=== PATIENT | female | born 1935 | race Caucasian/White ===

== ENCOUNTER 2016-08-22 08:46 | Observation (INO) | payer MEDICAID ==
[2016-08-22 08:47] VITALS: BMI 30.1
[2016-08-22 09:00] VITALS: O2SAT 98
[2016-08-22] MEDS ORDERED: Iohexol 240 (50 ml) PO ONE (09:25)
--- NOTE | 2016-08-22 09:37 | ED PDOC ---
HPI: Abdomen Time Seen by Provider: 08/22/16 09:11 Chief Complaint (Nursing): Abdominal Pain Chief Complaint (Provider): Abdominal pain History Per: Patient History/Exam Limitations: no limitations Onset/Duration Of Symptoms: Days (x14) Additional Complaint(s): Palak Fontaine, 81 year old female presents to the ED on 08/22/16 for abdominal pain occurring for 2 weeks prior to arrival. The patient has been experiencing consistent, non-radiating pain in the area for the past 2 weeks. She denies nausea, vomiting, or fever. The patient has been urinating frequently throughout the night. She has a past medical history inclusive of hyperthyroidism, anxiety, and hypertension. The patient has been taking Omeprazole 40 mg for 1 month with no relief. She also takes Xanax, Paxil, Lipitor, Melatonin, and Vitamin D. 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 Past Medical History Reviewed: Historical Data, Nursing Documentation, Vital Signs Vital Signs: Last Vital Signs Temp 98 F 08/22/16 08:55 Pulse 88 08/22/16 08:55 Resp 20 08/22/16 08:55 BP 121/70 08/22/16 08:55 Pulse Ox 98 08/22/16 11:08 - Medical History PMH: Anxiety, HTN, Hyperthyroidism Denies: Chronic Kidney Disease - Surgical History Surgical History: Appendectomy, Cholecystectomy - Family History Family History: States: Unknown Family Hx - Immunization History Hx Tetanus Toxoid Vaccination: Yes Hx Influenza Vaccination: Yes Hx Pneumococcal Vaccination: Yes - Home Medications Home Medications: Ambulatory Orders Medication Instructions Recorded ALPRAZolam [Xanax] 0.125 mg PO DAILY PRN 08/22/16 Atorvastatin [Lipitor] 20 mg PO HS 08/22/16 Ergocalciferol (Vitamin D2) 50,000 unit PO TH 08/22/16 [Vitamin D2] Escitalopram [Lexapro] 10 mg PO DAILY 08/22/16 Levothyroxine [Synthroid] 125 mcg PO DAILY 08/22/16 Melatonin [Melatonin] 5 mg PO HS 08/22/16 [place]-3 Fatty Acids/Fish Oil [Fish 2 gm PO BID 08/22/16 Oil 1,000 mg Capsule] Omeprazole [Omeprazole] 40 mg PO DAILY 08/22/16 - Allergies Allergies/Adverse Reactions: Allergies Allergy/AdvReac Type Severity Reaction Status Date / Time No Known Allergies Allergy Verified 06/17/16 10:39 Review of Systems ROS Statement: Except As Marked, All Systems Reviewed And Found Negative Constitutional: Negative for: Fever Gastrointestinal: Positive for: Abdominal Pain. Negative for: Nausea, Vomiting Genitourinary Female: Positive for: Frequency Physical Exam - Reviewed Nursing Documentation Reviewed: Yes Vital Signs Reviewed: Yes - Physical Exam Appears: Positive for: Non-toxic, No Acute Distress Head Exam: Positive for: ATRAUMATIC, NORMOCEPHALIC Neck: Positive for: Normal Respiratory: Positive for: Crackles (basilar crackles bilaterally ). Negative for: Other (no edema ) Gastrointestinal/Abdominal: Positive for: Bowel Sounds (good), Tenderness ( epigastric and left lower quadrant tenderness ). Negative for: Mass, Distended , Guarding Neurologic/Psych: Positive for: Alert, Oriented (x3) - Laboratory Results Result Diagrams: 08/22/16 10:34 08/22/16 10:34 - ECG O2 Sat by Pulse Oximetry: 98 (RA) Pulse Ox Interpretation: Normal Medical Decision Making Medical Decision Making: Initial Impression: Differential diagnosis includes but is not limited to abdominal pain, gastritis , remotely diverticulitis Initial Plan: * CT Abd pelvis PO & IV Contrast Stat * Electrocardiogram Stat * COMP Metabolic Panel Stat * Lipase Stat * ED Urine Dipstick (POC) Stat * CBC (With Differential) Stat * Urine Culture Stat * Saline Lock Once * Omnipaque 240 50 ML PO Once One * Pepcid 20 mg IVP Stat * Reevaluation Scribe Attestation: Documented by Corina Chapman, acting as a scribe for Cathy Garzon MD. Provider Scribe Attestation: All medical record entries made by the Scribe were at my direction and personally dictated by me. I have reviewed the chart and agree that the record accurately reflects my personal performance of the history, physical exam, medical decision making, and the department course for this patient. I have also personally directed, reviewed, and agree with the discharge instructions and disposition. ED OBSERVATION Discharge: Yes Date of observation admission: 08/22/16 Time of observation admission: 10:30 - Observation admission statement Patient is being placed in observation because:: need for evaluation of abd. pain - Progress Note Progress Note: 08/22/16 15:51 CT scan shows presence of thickened wall in the stomach and duodenum with concern for malignancy. This information was relayed to patient's daughter. Patient has a scheduled appointment in about 3 weeks with GI. Disposition - Clinical Impression Clinical Impression: Epigastric pain - Patient ED Disposition Is Patient to be Admitted: No Doctor Will See Patient In The: Office Counseled Patient/Family Regarding: Diagnosis - Disposition Disposition: Routine/Home Disposition Time: 15:53 Condition: FAIR - POA Present On Arrival: None
[2016-08-22 10:38] LABS: BASO # 0.1 K/uL (0.0-0.2); BASO % 0.9 % (0.0-2.0); EOS # 0.1 K/uL (0.0-0.7); EOS % 1.4 % (0.0-4.0); HEMATOCRIT 26.8 % (34.0-47.0); LYMPH # 3.2 K/uL (1.0-4.3); LYMPH % 35.1 % (20.0-40.0); MEAN CELL VOLUME 88.8 fl (81.0-99.0); MEAN CORPUSCULAR HGB CONC 33.8 g/dL (33.0-37.0); MEAN PLATELET VOLUME 6.6 fl (7.2-11.7); MONO # 0.9 K/uL (0.0-0.8); MONO % 9.3 % (0.0-10.0); NEUT # 4.9 K/uL (1.8-7.0); NEUT % 53.3 % (50.0-75.0); NRBC % 0.2 % (0.0-0.0); RED CELL DISTRIBUTION WIDTH 13.6 % (11.5-14.5); WHITE BLOOD COUNT 9.2 K/uL (4.8-10.8)
[2016-08-22 10:45] LABS: ALKALINE PHOSPHATASE 71 U/L (38-126); ALT/SGPT 35 U/L (9-52); AST/SGOT 35 U/L (14-36); BILIRUBIN,TOTAL 0.4 mg/dl (0.2-1.3); BLOOD UREA NITROGEN 13 mg/dl (7-17); CALCIUM 8.9 mg/dL (8.4-10.2); CARBON DIOXIDE 29 mmol/L (22-30); CHLORIDE 99 mmol/L (98-107); GFR AFRICAN-AMERICAN > 60; GLUCOSE,RANDOM 100 mg/dL (65-105); LIPASE 93 U/L (23-300); POTASSIUM 4.6 MMOL/L (3.6-5.0); SODIUM 136 mmol/l (132-148); TOTAL PROTEIN 7.8 G/DL (6.3-8.2)
[2016-08-22 11:04] LABS: RBC URINE 3 /hpf (0-3); URINE BACTERIA RARE (<OCC); URINE BILIRUBIN NEGATIVE (NEGATIVE); URINE BLOOD NEGATIVE (NEGATIVE); URINE COLOR YELLOW (YELLOW); URINE GLUCOSE (UA) NEG (Normal); URINE KETONE NEGATIVE (NEGATIVE); URINE LEUKOCYTE ESTERASE SMALL Leu/uL (Negative); URINE PROTEIN NEGATIVE (NEGATIVE); URINE UROBILINOGEN 0.2-1.0 mg/dL (0.2-1.0); WBC URINE 6 /hpf (0-5)
--- NOTE | 2016-08-22 14:51 | CT ---
PROCEDURE: CT Abdomen and Pelvis with oral and IV contrast. HISTORY: abdominal pain for 2 weeks COMPARISON: None available. TECHNIQUE: Contiguous axial images of the abdomen and pelvis. Oral and IV contrast was administered. Coronal and Sagittal reformats generated and reviewed. Contrast dose: 95 cc Omnipaque 300 Radiation dose: Total exam DLP = 885.86 mGy-cm. This CT exam was performed using one or more of the following dose reduction techniques: Automated exposure control, adjustment of the mA and/or kV according to patient size, and/or use of iterative reconstruction technique. FINDINGS: LOWER THORAX: No visible consolidation, pleural effusion, or pneumothorax. LIVER: Hypoattenuation of the liver compatible with hepatic steatosis. GALLBLADDER AND BILE DUCTS: Gallbladder is not identified, presumably due to cholecystectomy however cholecystectomy clips are not evident. PANCREAS: Unremarkable. SPLEEN: Unremarkable. ADRENALS: Unremarkable. KIDNEYS AND URETERS: The kidneys enhance symmetrically. No hydronephrosis or obstructing renal calculus. Left parapelvic cysts. BLADDER: Under distended urinary bladder limits evaluation. REPRODUCTIVE: Uterus is present. APPENDIX: Not visualized. No secondary signs of acute appendicitis. BOWEL: Severe distal gastric wall/proximal duodenal wall thickening worrisome for malignancy versus infectious/inflammatory processes. Correlate clinically and suggest further evaluation with endoscopy if clinically indicated. Several anterior fat containing ventral wall hernias. 2 most inferior lower ventral wall hernias contain bowel without evidence of obstruction. The bowel loops appear within normal limits of caliber without evidence of intestinal obstruction. PERITONEUM: No significant free fluid. No definite free air. LYMPH NODES: No bulky lymphadenopathy identified. VASCULATURE: No aortic aneurysm. BONES: Osseous demineralization. Degenerative changes. OTHER FINDINGS: None. IMPRESSION: Severe distal gastric wall/proximal duodenal wall thickening worrisome for malignancy versus infectious/inflammatory processes. Correlate clinically and suggest further evaluation with endoscopy if clinically indicated. Additional findings as above.
[2016-08-22 15:59] VITALS: BP 122/79; PULSE 75; RESP 16; TEMP 98
--- NOTE | 2016-08-22 17:53 | CARD ---
APPROVED REPORT EKG Measurement Heart [id number] <Conclusion> Normal sinus rhythm Normal ECG
== END 2016-08-22 16:20 | disposition home or self-care (01) ==
LOC: H.ER 08:46 → H.EROBSV 11:06
PROVIDERS: ADMIT Emergency Medicine; ATTEND Emergency Medicine
DX: R10.13 Epigastric pain (principal); I10 Essential (primary) hypertension; E05.90 Thyrotoxicosis, unspecified without thyrotoxic crisis or storm; F41.9 Anxiety disorder, unspecified